=== PATIENT | female | born 1960 | race Caucasian/White ===

== ENCOUNTER 2017-12-02 01:12 | Emergency (ER) | payer OTHER ==
[~2017-12-02] VITALS: Ht 154.9 cm; Wt 92.5 kg
[2017-12-02] MEDS ORDERED: ORPHENADRINE C100 M2 PO (01:48)
[2017-12-02] MEDS ORDERED: VITAMIN D2000 UNIT PO (01:50)
[2017-12-02] MEDS ORDERED: LOPRESSOR25 PO (01:50)
[2017-12-02 02:00] LABS: URINE BILIRUBIN NEGATIVE (Negative); URINE BLOOD NEGATIVE (Negative); URINE CLARITY CLEAR; URINE COLOR YELLOW; URINE GLUCOSE-RANDOM NEGATIVE (Negative); URINE KETONES NEGATIVE (Negative); URINE LEUKOCYTES-REFLEX NEGATIVE (Negative); URINE NITRITE-REFLEX NEGATIVE (Negative); URINE PROTEIN NEGATIVE (Negative); URINE UROBILINOGEN 0.2 E.U./dl (0.2-1.0)
[2017-12-02 02:07] LABS: ABSOLUTE BASOPHILS 0.1 thou/uL (0.0-0.2); ABSOLUTE EOSINOPHILS 0.1 thou/uL (0.0-0.7); ABSOLUTE LYMPHOCYTES 1.4 thou/uL (0.8-5.3); ABSOLUTE MONOCYTES 0.9 thou/uL (0.0-1.2); ABSOLUTE NEUTROPHILS 9.7 thou/uL (1.6-8.1); BASOPHILS 0.7 %; EOSINOPHILS 1.1 %; HEMATOCRIT 39.2 % (37.0-47.0); HEMOGLOBIN 13.4 gm/dL (12.0-15.0); LYMPHOCYTES 11.4 %; MCH 30.2 pg (26.0-34.0); MCHC 34.3 g/dL (28.0-37.0); MCV 88.1 fL (80.0-100.0); MONOCYTES 7.7 %; MPV 8.4 fl. (7.2-11.1); NUCLEATED RBCS 0 /100WBC; PLATELET COUNT* 210 thou/uL (150-400); POLYS 79.1 %; RBC 4.44 mil/uL (4.20-5.00); RDW-CV 13.7 % (10.5-14.5); WBC 12.2 thou/uL (4.0-11.0)
[2017-12-02 02:13] LABS: CALCIUM 9.1 mg/dL (8.5-10.1); CREATININE 0.9 mg/dL (0.6-1.3); POTASSIUM 3.8 mmol/L (3.5-5.1)
[2017-12-02 02:18] LABS: ALBUMIN 3.9 g/dL (3.4-5.0); TOTAL BILIRUBIN 0.8 mg/dL (<0.1-1.0); TOTAL PROTEIN 8.2 g/dL (6.4-8.2)
[2017-12-02] MEDS ORDERED: HYDROCODONE-AP1 EAC6 PO (03:35)
[2017-12-02] MEDS ORDERED: CIPROFLOXACIN500 M1 PO (03:35)
[2017-12-02] MEDS ORDERED: ZOFRAN ODT4 MG PO (03:35)
[2017-12-02] MEDS ORDERED: FLAGYL500 MG PO (03:35)
[2017-12-02 03:49] VITALS: BP 128/72
== END 2017-12-02 03:51 | disposition home or self-care (01) ==
LOC: M.ERS 01:12
PROVIDERS: Emergency Medicine
DX: K57.92 Diverticulitis of intestine, part unspecified, without perforation or abscess without bleeding (principal); I10 Essential (primary) hypertension; Z88.5 Allergy status to narcotic agent; Z90.49 Acquired absence of other specified parts of digestive tract

== ENCOUNTER 2018-06-21 19:39 | Emergency (ER) | payer OTHER ==
[~2018-06-21] VITALS: Ht 154.9 cm; Wt 92.1 kg
[~2018-06-21 19:39] MED LIST: CIPROFLOXACIN500 M1 PO; FLAGYL500 MG PO; HYDROCODONE-AP1 EAC6 PO; LOPRESSOR25 PO; ORPHENADRINE C100 M2 PO; VITAMIN D2000 UNIT PO; ZOFRAN ODT4 MG PO
[2018-06-21] MEDS ORDERED: SPIRONOLACTONE25 M1 (19:45)
[2018-06-21 20:29] LABS: ABSOLUTE BASOPHILS 0.1 thou/uL (0.0-0.2); ABSOLUTE EOSINOPHILS 0.2 thou/uL (0.0-0.7); ABSOLUTE LYMPHOCYTES 1.7 thou/uL (0.8-5.3); ABSOLUTE MONOCYTES 0.5 thou/uL (0.0-1.2); ABSOLUTE NEUTROPHILS 3.5 thou/uL (1.6-8.1); BASOPHILS 0.9 %; EOSINOPHILS 3.6 %; HEMATOCRIT 37.6 % (37.0-47.0); LYMPHOCYTES 28.9 %; MCH 31.7 pg (26.0-34.0); MCHC 34.5 g/dL (28.0-37.0); MCV 91.8 fL (80.0-100.0); MONOCYTES 7.8 %; MPV 8.5 fl. (7.2-11.1); NUCLEATED RBCS 0 /100WBC; PLATELET COUNT* 203 thou/uL (150-400); POLYS 58.8 %; RDW-CV 13.9 % (10.5-14.5); WBC 5.9 thou/uL (4.0-11.0)
[2018-06-21 20:43] LABS: APTT 29.5 Seconds (25.0-31.3); PROTIME 10.5 Seconds (9.20-11.50)
[2018-06-21 20:47] LABS: ANION GAP 9 mmol/L (7-16); BUN 14 mg/dL (7-18); CALCIUM 9.5 mg/dL (8.5-10.1); CHLORIDE 103 mmol/L (98-107); CO2 29 mmol/L (21-32); GLUCOSE 91 mg/dL (70-99); POTASSIUM 4.1 mmol/L (3.5-5.1); SODIUM 141 mmol/L (136-145)
[2018-06-21 21:08] LABS: ALBUMIN 3.9 g/dL (3.4-5.0); ALKALINE PHOSPHATASE 94 U/L (46-116); LIPASE 147 U/L (73-393); SGOT 27 U/L (15-37); SGPT 33 U/L (30-65); TOTAL BILIRUBIN 0.7 mg/dL (<0.1-1.0); TOTAL PROTEIN 7.9 g/dL (6.4-8.2)
[2018-06-21 21:29] LABS: CK-MB MASS 0.9 ng/mL (<0.5-3.6); NT-PRO BRAIN NAT PEPTIDE 18 pg/mL (<300); TROPONIN-I LEVEL <0.06 ng/mL (<0.06)
[2018-06-21 21:38] VITALS: BP 128/73
--- NOTE | 2018-06-23 14:44 | EKG ---
[place] [address] ELECTROCARDIOGRAM REPORT Name: SARA ZAYAS Room: [facility]#: [id number] Admission: 06/21/18 Attend Phys: Discharge: 06/21/18 Date of : 62 Report #: [id number] THIS REPORT FOR: //name// [facility] ED Test Date: 2018-06-21 Test Time: 19:43:59 Pat Name: SARA ZAYAS Department: Room: Gender: F Cathode Washer: Shanti LY : 1960 Requested By: Leobardo Orozco Order Number: [id number] MD: James Moore Measurements Intervals [place] Rate: 95 P: 50 MO: 163 QRS: 1 QRSD: 98 T: 37 QT: 360 QTc: 453 Interpretive Statements Sinus rhythm Baseline wander in lead(s) V1 No previous ECG available for comparison Electronically Signed On 06-23-2018 14:43:47 LAMP TESTER AND INSPECTOR by James Moore [email or web address] <ELECTRONICALLY SIGNED> By: James Moore MD, [facility] 06/23/18 1443 1943 42 James Moore MD, FACC /EPI
== END 2018-06-21 21:45 | disposition home or self-care (01) ==
LOC: M.ERS 19:39
PROVIDERS: Family Medicine
DX: R07.89 Other chest pain (principal); I10 Essential (primary) hypertension; Z90.49 Acquired absence of other specified parts of digestive tract

== ENCOUNTER 2019-11-20 07:26 | Inpatient (IN) | payer OTHER ==
[~2019-11-20] VITALS: Ht 154.9 cm; Wt 99.3 kg
[~2019-11-20 07:26] MED LIST changes: +SPIRONOLACTONE25 M1
[2019-11-20 07:33] VITALS: BP 136/94
[2019-11-20] MEDS ORDERED: PROCHLORPERAZINE5 M2 PO (07:36)
[2019-11-20] MEDS ORDERED: CIPRO500 M1 PO (07:36)
[2019-11-20] MEDS ORDERED: NYSTATIN100000 UNI SW&SWALLOW (07:37)
[2019-11-20] MEDS ORDERED: METRONIDAZOLE500 M4 PO (07:37)
[2019-11-20 07:53] LABS: ABSOLUTE BASOPHILS 0.1 thou/uL (0.0-0.2); ABSOLUTE EOSINOPHILS 0.1 thou/uL (0.0-0.7); ABSOLUTE LYMPHOCYTES 1.6 thou/uL (0.8-5.3); ABSOLUTE MONOCYTES 0.8 thou/uL (0.0-1.2); ABSOLUTE NEUTROPHILS 8.4 thou/uL (1.6-8.1); BASOPHILS 0.6 %; EOSINOPHILS 0.6 %; HEMATOCRIT 38.5 % (37.0-47.0); HEMOGLOBIN 13.6 gm/dL (12.0-15.0); LYMPHOCYTES 14.3 %; MCH 31.7 pg (26.0-34.0); MCHC 35.3 g/dL (28.0-37.0); MCV 89.8 fL (80.0-100.0); MONOCYTES 7.6 %; MPV 8.2 fl. (7.2-11.1); NUCLEATED RBCS 0 /100WBC; PLATELET COUNT* 268 thou/uL (150-400); POLYS 76.9 %; RBC 4.29 mil/uL (4.20-5.00); RDW-CV 13.7 % (10.5-14.5)
[2019-11-20 07:56] LABS: CALCIUM 8.4 mg/dL (8.5-10.1); CREATININE 0.8 mg/dL (0.6-1.3); POTASSIUM 3.7 mmol/L (3.5-5.1)
[2019-11-20 08:01] LABS: ALBUMIN 3.6 g/dL (3.4-5.0); TOTAL BILIRUBIN 0.6 mg/dL (<0.1-1.0); TOTAL PROTEIN 7.7 g/dL (6.4-8.2)
--- NOTE | 2019-11-20 09:09 | NUR ---
RITA NOTIFIED UPON PT RETURN FROM CT.PT CONNECTED TO BP AND PULSE OX SHE WAS PRIOR TO CT
[2019-11-20 09:47] LABS: URINE BILIRUBIN NEGATIVE (Negative); URINE BLOOD NEGATIVE (Negative); URINE CLARITY CLEAR; URINE COLOR YELLOW; URINE GLUCOSE-RANDOM NEGATIVE (Negative); URINE KETONES NEGATIVE (Negative); URINE LEUKOCYTES-REFLEX TRACE (Negative); URINE NITRITE-REFLEX NEGATIVE (Negative); URINE PROTEIN NEGATIVE (Negative); URINE SPECIFIC GRAVITY <= 1.005 (1.005-1.030); URINE UROBILINOGEN 0.2 E.U./dl (0.2-1.0)
[2019-11-20 09:55] LABS: BACTERIA-REFLEX 1-9 Few /HPF (None Seen); CASTS None Seen /LPF (None Seen); CRYSTALS None Seen /LPF (None Seen); MUCUS 0-3 Light strn/LPF (None Seen); SQUAMOUS 4-10 Moderate /LPF (0-3); URINE RBC 0-2 Rare /HPF (0-2); URINE WBC-REFLEX 0-5 Rare /HPF (0-5)
[2019-11-20 12:08] VITALS: BP 117/70
[2019-11-20 12:09] VITALS: BP 107/70
--- NOTE | 2019-11-20 12:44 | NUR ---
PT ADMITTED WITH DIVERTICULITIS. PT ALERT AND ORIENTED. PT RESTING IN CHAIR, PT STATES SHE HAS A SLIGHT HEADACHE. PHYSICIAN NOTIFIED. PT ORIENTED TO ROOM AND GIVEN FOOD PER DIET ORDERS. FALL RISK PRECAUTIONS IN PLACE. WILL CONTINUE TO MONITOR.
--- NOTE | 2019-11-20 17:00 | NUR ---
PT REMAINED ALERT AND ORIENTED. PT RESTING IN CHAIR, PT C/O LIGHT HEADACHE. PT ON CLEAR LIQUID DIET. FALL RISK PRECAUTIONS IN PLACE. HOURLY ROUNDING COMPLETED. WILL CONTINUE TO MONITOR.
[2019-11-20 17:07] VITALS: BP 141/74
[2019-11-20 20:00] VITALS: BP 121/68
--- NOTE | 2019-11-21 04:59 | NUR ---
PT A&O, VSS ON RA. TOLERATING CLEAR LIQUID, NO N/V. DENIED PAIN. IVF RUNNING ORDERED. UP INDEPENDENTLY IN THE ROOM. NO OTHER CONCERNS AT THIS TIME. WILL CONTINUE TO MONITOR.
--- NOTE | 2019-11-21 15:57 | NUR ---
SPOKE WITH PT.ON PHONE. SHE WAS ALERT AND ORIENTED. STATED SHE LIVES ALONE. HER DAUGHTERS ARE SUPPORTIVE. SHE WORKS OUTSIDE THE HOME AND DOES NOT USE ANY DME. SHE DOES NOT FEEL SHE WILL HAVE ANY DISCHARGE NEEDS..
--- NOTE | 2019-11-21 19:21 | NUR ---
PT A&OX4 VSS. PT REMAINS ON CLEARS R/T DX OF DIVERTICULITIS. PT DOES NOT C/O PAIN OR N/V. PT UP AD DIEUDONNE, GAIT STEADY. IV TO RAC PATENT. DRESSING C/D/I. CONTINUED IV ABX. PT RESTS IN ROOM WITH CALL IGHT AND PERSONAL BELONGINGS IN REACH. WILL CONTINUE TO MONITOR.
[2019-11-21 19:45] VITALS: BP 125/59
--- NOTE | 2019-11-22 03:53 | NUR ---
ASSUMED CARE FROM DAY SHIFT PT SITTING IN CHAIR NO COMPLAINTS NOTED , PT REPORTED LOOSE STOOL LAST EVENING. RESTED WELL THROUGHOUT HOURLY ROUNDS. DENIES NAUSEA OR VOMITING THIS SHIFT. WILL CONITINUE WITH CURRENT PLAN OF CARE.
[2019-11-22 08:00] VITALS: BP 102/51
[2019-11-22] MEDS ORDERED: AUGMENTIN 875-1 EACH PO (10:27)
--- NOTE | 2019-11-22 10:37 | NUR ---
DR TERRY HERE AND STATES THAT PATIENT CAN GO HOME TODAY
--- NOTE | 2019-11-22 10:37 | NUR ---
4445 ASSUMED CARE OF PATIENT. PLEASE SEE DOCUMENTED ASSESSMENT. PT DENIES PAIN.
[2019-11-22 10:57] LABS: ABSOLUTE EOSINOPHILS 0.1 thou/uL (0.0-0.7); ABSOLUTE LYMPHOCYTES 1.1 thou/uL (0.8-5.3); ABSOLUTE MONOCYTES 0.5 thou/uL (0.0-1.2); ABSOLUTE NEUTROPHILS 3.3 thou/uL (1.6-8.1); BASOPHILS 0.7 %; EOSINOPHILS 2.3 %; HEMATOCRIT 34.3 % (37.0-47.0); HEMOGLOBIN 11.9 gm/dL (12.0-15.0); LYMPHOCYTES 21.4 %; MCH 31.7 pg (26.0-34.0); MCHC 34.8 g/dL (28.0-37.0); MCV 91.2 fL (80.0-100.0); MONOCYTES 10.3 %; MPV 8.2 fl. (7.2-11.1); NUCLEATED RBCS 0 /100WBC; PLATELET COUNT* 240 thou/uL (150-400); POLYS 65.3 %; RBC 3.76 mil/uL (4.20-5.00); RDW-CV 13.9 % (10.5-14.5)
[2019-11-22 11:02] VITALS: BP 102/51
[2019-11-22 11:04] LABS: CALCIUM 8.3 mg/dL (8.5-10.1); CREATININE 0.9 mg/dL (0.6-1.3); POTASSIUM 3.7 mmol/L (3.5-5.1)
--- NOTE | 2019-11-22 11:58 | NUR ---
discharge education complete
== END 2019-11-22 13:40 | disposition home or self-care (01) | DRG 392 ==
LOC: M.ERS 07:26 → M.TBA-ER 09:41 → M.ORTHSURG 09:41
PROVIDERS: Personal Emergency Response Attendant; ADMIT Internal Medicine
DX: K57.32 Diverticulitis of large intestine without perforation or abscess without bleeding (principal); K52.9 Noninfective gastroenteritis and colitis, unspecified; I10 Essential (primary) hypertension; E28.2 Polycystic ovarian syndrome; Z90.49 Acquired absence of other specified parts of digestive tract; Z79.899 Other long term (current) drug therapy; Z80.0 Family history of malignant neoplasm of digestive organs

== ENCOUNTER 2020-08-15 15:29 | Emergency (ER) | payer OTHER ==
[~2020-08-15] VITALS: Ht 154.9 cm; Wt 99.8 kg
[~2020-08-15 15:29] MED LIST changes: +AUGMENTIN 875-1 EACH PO; +CIPRO500 M1 PO; +METRONIDAZOLE500 M4 PO; +NYSTATIN100000 UNI SW&SWALLOW; +PROCHLORPERAZINE5 M2 PO
[2020-08-15] MEDS ORDERED: NORFLEX100 MG PO (15:44)
[2020-08-15] MEDS ORDERED: TYLENOL325 M1 PO (15:44)
[2020-08-15] MEDS ORDERED: ICY HOT1 EAC1 TOP (15:45)
[2020-08-15] MEDS ORDERED: ADVIL LIQUI-GE200 MG PO (15:45)
[2020-08-15] MEDS ORDERED: HYDROCODON-ACE1 EAC7 PO ×2 (16:14→16:17)
[2020-08-15] MEDS ORDERED: MEDROLDOSEPACK PO (16:14)
[2020-08-15 16:34] VITALS: BP 135/70
--- NOTE | 2020-08-16 10:57 | EKG ---
[place] [address] ELECTROCARDIOGRAM REPORT Name: SARA ZAYAS Room: [facility]#: [id number] Admission: 08/15/20 Attend Phys: Discharge: 08/15/20 Date of : 62 Date of Service: 08/15/20 1544 Report #: [id number] THIS REPORT FOR: //name// [facility] ED Test Date: 2020-08-15 Test Time: 15:44:39 Pat Name: SARA ZAYAS Department: Room: Gender: F Agile Tester: : 1960 Requested By: Reji Metz Order Number: [id number] MD: Luca Littlejohn Measurements Intervals [place] Rate: 85 P: 45 [place]: 158 QRS: -8 QRSD: 80 T: 32 QT: 381 QTc: 453 Interpretive Statements Sinus rhythm Compared to ECG 06/21/2018 19:43:59 No significant changes Electronically Signed On 08-16-2020 10:56:52 TEACHER EDUCATION DIRECTOR by Luca Littlejohn [email or web address] <ELECTRONICALLY SIGNED> By: Luca Littlejohn MD, [facility] 08/16/20 1056 1544 1544 Luca Littlejohn MD, [facility] /EPI
== END 2020-08-15 16:41 | disposition home or self-care (01) ==
LOC: M.ERS 15:29
DX: M54.6 Pain in thoracic spine (principal); I10 Essential (primary) hypertension; Z79.899 Other long term (current) drug therapy; Z90.49 Acquired absence of other specified parts of digestive tract; Z98.890 Other specified postprocedural states